=== PATIENT | female | born 1990 | race Caucasian/White ===

== ENCOUNTER 2016-09-13 15:24 | Emergency (ER) | payer OTHER | END 2016-09-13 17:43 | disposition home or self-care (01) | LOC: FER 15:24 | DX: J02.0 Streptococcal pharyngitis (principal); F17.210 Nicotine dependence, cigarettes, uncomplicated; Z88.0 Allergy status to penicillin | CPT/HCPCS: 87450; 99283 ==

== ENCOUNTER 2020-08-01 12:58 | Emergency (ER) | payer OTHER ==
[~2020-08-01 12:58] MED LIST: IMITREX50 MG PO; PREDNISONE 20MG20 MG PO; VENTOLIN HFA IN18 GM INH; VISTARIL25 MG PO; ZOFRAN4 MG PO
[2020-08-01 15:15] LABS: ALBUMIN 3.6 g/dL (3.4-5.0); BASOPHIL 0.4 % (0-2); BILIRUBIN - TOTAL 0.2 mg/dL (0.2-1.0); BUN/CREAT RATIO (CALC) 16.2 RATIO; CREATININE 0.68 mg/dL (0.51-0.95); EOSINOPHIL 3.3 % (0-5); GLOBULIN (CALCULATION) 3.1 g/dL; HCT 39.7 % (37.0-47.0); HGB 13.4 g/dl (12.5-16.0); LYMPHOCYTE 28.3 % (15-48); MCH 32.2 pg (25.0-31.0); MCHC 33.8 g/dL (32.0-36.0); MCV 95.4 fL (78.0-100.0); MONOCYTE 7.5 % (0-12); MPV 11.6 fL (6.0-9.5); NEUTROPHIL 60.1 % (41-80); NRBC 0; PLT 203 K/uL (150-400); RBC 4.16 M/uL (4.20-5.40); RDW 11.9 % (11.5-14.0); TOTAL PROTEIN 6.7 g/dL (6.4-8.2); WBC 5.5 K/uL (4.0-10.5)
[2020-08-01 15:37] LABS: BILIRUBIN NEGATIVE (NEGATIVE); BLOOD NEGATIVE Ery/uL (NEGATIVE); CLARITY CLEAR (CLEAR); COLOR YELLOW (YELLOW); GLUCOSE (U) NORMAL (NORMAL); LEUKOCYTES 1+ Leu/uL (NEGATIVE); NITRITE NEGATIVE (NEGATIVE); PROTEIN NEGATIVE (NEGATIVE); SPECIFIC GRAVITY 1.015 (1.001-1.030); UROBILINOGEN 0.2 mg/dL (0.2-1.0)
[2020-08-01 15:46] LABS: BACTERIA 1+; URINARY RBC RARE
[2020-08-01] MEDS ORDERED: NAPROXEN500 MG PO (16:16)
== END 2020-08-01 16:30 | disposition home or self-care (01) ==
LOC: FER 12:58
PROVIDERS: Nurse Practitioner Family
DX: N83.202 Unspecified ovarian cyst, left side (principal); R19.7 Diarrhea, unspecified; F17.210 Nicotine dependence, cigarettes, uncomplicated; Z90.710 Acquired absence of both cervix and uterus; Z90.49 Acquired absence of other specified parts of digestive tract; Z88.0 Allergy status to penicillin
CPT/HCPCS: 36415; 80053; 81001; 85025; 87088; J1885; J2405; J7030

== ENCOUNTER 2021-09-29 12:17 | Emergency (ER) | payer OTHER ==
[~2021-09-29 12:17] MED LIST changes: +NAPROXEN500 MG PO
[2021-09-29 13:49] LABS: BASOPHIL 0.3 % (0-2); EOSINOPHIL 2.1 % (0-5); HCT 42.3 % (37.0-47.0); LYMPHOCYTE 22.6 % (15-48); MCHC 33.1 g/dL (32.0-36.0); MCV 93.6 fL (78.0-100.0); MONOCYTE 8.5 % (0-12); MPV 11.5 fL (6.0-9.5); NEUTROPHIL 66.3 % (41-80); NRBC 0; PLT 206 K/uL (150-400); RBC 4.52 M/uL (4.20-5.40); WBC 6.6 K/uL (4.0-10.5)
[2021-09-29 14:04] LABS: BUN/CREAT RATIO (CALC) 17.2 RATIO; CREATININE 0.87 mg/dL (0.51-0.95); POTASSIUM 4.3 mmol/L (3.5-5.1)
[2021-09-29 16:01] LABS: CORONAVIRUS 2019 SARS-COV-2 NEGATIVE (NEGATIVE); INFLUENZA A NAA NEGATIVE (NEGATIVE)
[2021-09-29] MEDS ORDERED: ONDANSETRON ODT4 MG PO (16:28)
== END 2021-09-29 17:07 | disposition home or self-care (01) ==
LOC: FER 12:17
PROVIDERS: Emergency Medicine; Nurse Practitioner Family
DX: B34.9 Viral infection, unspecified (principal); Z88.0 Allergy status to penicillin
CPT/HCPCS: 36415; 80048; 85025; J1885; J2405; J7030; U0002